=== PATIENT | female | born 1995 ===

== ENCOUNTER 2019-08-30 04:01 | Inpatient (IN) ==
[2019-08-30] MEDS ORDERED: Metoclopramide 10 MG/2 ML VIAL IVP PRN (04:26)
[2019-08-30] MEDS ORDERED: Famotidine 20 MG/2 ML VIAL IVP PRN (04:26)
[2019-08-30] MEDS ORDERED: *HR* Nalbuphine 10 MG/ML AMPUL IVP PRN (04:26)
[2019-08-30] MEDS ORDERED: Naloxone 0.4 MG/ML INJ IVP PRN (04:26)
[2019-08-30] MEDS ORDERED: Ringers Solution, Lactated 1,000 ML IVC SCH (04:30)
[2019-08-30 04:43] LABS: Basophils % 0.2 %; Eosinophils % 0.2 %; Hematocrit 38.4 % (35.3-44.9); Hemoglobin 13.6 g/dL (11.5-15.4); Immature Granulocytes % 0.6 % (0-4); Lymphocytes # 0.9 K/mcL (0.6-4.6); Lymphocytes % 5.2 %; Mean Corpuscular HGB Conc 35.4 g/dL (31.6-35.5); Mean Corpuscular Hemoglobin 29.2 pg (28.0-33.3); Mean Corpuscular Volume 82.4 fL (83.0-100.0); Mean Platelet Volume 10.3 fL (9.4-12.4); Monocytes # 1.2 K/mcL (0.0-1.3); Neutrophils # 15.2 K/mcL (1.6-8.9); Platelet Count 184 K/mcL (140-400); Red Blood Count 4.66 M/mcL (3.82-4.97); Red Cell Distribution Width 13.2 % (11.5-14.5); Segmented Neutrophils % 86.8 %; White Blood Count 17.5 K/mcL (4.3-11.1)
[2019-08-30] MEDS ORDERED: *HR* FentaNYL (PF) 100 MCG/2 ML VIAL EP ONE (05:35)
[2019-08-30] MEDS ORDERED: Ropivacaine/PF 0.2% 20 ML VIAL EP ONE (05:35)
[2019-08-30] MEDS ORDERED: Ropivacaine/PF 0.2% 20 ML VIAL ONE (05:38)
[2019-08-30] MEDS ORDERED: *HR* FentaNYL (PF) 100 MCG/2 ML VIAL ONE (05:38)
[2019-08-30] MEDS ORDERED: Epidural Premix (fent/bupiv) 110 ML EP ONE (05:39)
[2019-08-30] MEDS ORDERED: Epidural Premix (fent/bupiv) 110 ML EP SCH (05:45)
[2019-08-30] MEDS ORDERED: Oxytocin 20 units/ LR 1000 mL 20 UNIT/1,000 ML BAG IVC ONE (07:52)
[2019-08-30 09:04] LABS: Amphetamine Screen,Urine Negative ng/mL (Cutoff=1000); Barbiturate Screen,Urine Negative ng/mL (Cutoff=200); Benzodiazepines Screen,Urine Negative ng/mL (Cutoff=200); Cannabinoid Screen,Urine Negative ng/mL (Cutoff = 50); Cocaine Screen,Urine Negative ng/mL (Cutoff= 300); Opiate Screen,Urine Negative ng/mL (Cutoff=300); Phencyclidine Screen,Urine Negative ng/mL (Cutoff=25)
[2019-08-30] MEDS ORDERED: Ibuprofen 600 MG TABLET PO ONE (09:43)
[2019-08-30] MEDS ORDERED: Ondansetron 4 MG/2 ML VIAL IVP ONE (09:56)
[2019-08-30] MEDS ORDERED: Gentamicin 1 EACH in 0.9 % Sodium Chloride 100 ML IVPB SCH ×2 (10:00→11:03)
[2019-08-30] MEDS ORDERED: Gentamicin 130 MG in 0.9 % Sodium Chloride 100 ML IVPB ONE ×2 (10:04→11:03)
[2019-08-30 10:49] LABS: BUN/Creatinine Ratio 8 (6-26); Blood Urea Nitrogen 5 mg/dL (6-20); eGFR For African Americans > 60 (> 60); eGFR For Non-African Americans > 60 (> 60)
[2019-08-30] MEDS ORDERED: Oxytocin 20 units/ LR 1000 mL 20 UNIT/1,000 ML BAG IVC SCH (11:03)
[2019-08-30] MEDS ORDERED: Acetaminophen 325 MG TABLET PO PRN (11:03)
[2019-08-30] MEDS ORDERED: Ibuprofen 600 MG TABLET PO PRN (11:03)
[2019-08-30] MEDS ORDERED: Aminoglycoside Consult 1 EACH MC ONE (13:09)
[2019-08-30] MEDS ORDERED: Methylergonovine 0.2 MG/ML AMPUL IM ONE (13:09)
[2019-08-30] MEDS: Clindamycin 900 MG/50 ML 900 MG/50 ML IV.SOLN IVPB SCH ×2 (13:55→22:26)
[2019-08-30] MEDS ORDERED: Clindamycin 900 MG/50 ML 900 MG/50 ML IV.SOLN IVPB SCH (16:00)
[2019-08-30] MEDS: Gentamicin 130 MG in 0.9 % Sodium Chloride 100 ML IVPB SCH (19:28)
[2019-08-30] MEDS ORDERED: Benzocaine/Menthol 56 GM AEROSOL SPRAY TP PRN (19:34)
[2019-08-31] MEDS: Gentamicin 130 MG in 0.9 % Sodium Chloride 100 ML IVPB SCH (03:08)
[2019-08-31 03:39] VITALS: BP 99/61
[2019-08-31] MEDS: Clindamycin 900 MG/50 ML 900 MG/50 ML IV.SOLN IVPB SCH (04:08)
[2019-08-31] MEDS ORDERED: Prenatal Vit/FA 1 EACH TABLET PO SCH (09:00)
[2019-08-31 18:57] LABS: Immature Granulocytes % 1.5 % (0-4)
[2019-08-31 18:58] LABS: Basophils # 0.1 K/mcL (0.0-0.2); Basophils % 0.2 %; Eosinophils # 0.2 K/mcL (0.0-0.6); Eosinophils % 0.6 %; Hematocrit 37.7 % (35.3-44.9); Hemoglobin 12.8 g/dL (11.5-15.4); Lymphocytes # 2.6 K/mcL (0.6-4.6); Lymphocytes % 10.5 %; Mean Corpuscular Volume 85.5 fL (83.0-100.0); Mean Platelet Volume 10.4 fL (9.4-12.4); Monocytes # 1.6 K/mcL (0.0-1.3); Monocytes % 6.6 %; Platelet Count 195 K/mcL (140-400); Red Blood Count 4.41 M/mcL (3.82-4.97); Red Cell Distribution Width 13.9 % (11.5-14.5); Segmented Neutrophils % 80.6 %; White Blood Count 24.8 K/mcL (4.3-11.1)
== END 2019-08-31 13:10 | disposition home or self-care (01) | DRG 807 ==
LOC: 1NENULAB 04:01 → 1NENUOBS 13:36
PROVIDERS: ADMIT Advanced Practice Midwife; ATTEND Advanced Practice Midwife